=== PATIENT | female | born 1945 | race American Indian/Alaskan Native ===

== ENCOUNTER 2018-04-07 19:44 | Emergency (ER) | payer MEDICARE, OTHER ==
[2018-04-07 19:44] VITALS: PULSE 66
[2018-04-07 20:13] VITALS: RESP 18; TEMP 98.3; O2SAT 100; BMI 19.1
--- NOTE | 2018-04-07 20:28 | ED PDOC ---
Arrival/HPI - General Chief Complaint: Anxiety Time Seen by Provider: 04/07/18 19:45 Historian: Patient, Family - History of Present Illness Narrative History of Present Illness (Text): 04/07/18 20:00 72 year old female, history of anxiety attacks on medication, presents to the emergency department after episode of hyperventilating. Patient was fine all day and went to sleep, but woke up hyperventilating. Daughter at beside reports patient was anxious because her grandchildren were not there and they were suppose to visit today. Patient was hyperventilating and anxious for 30 minutes, but calmed down and symptoms resolved immediately once EMS arrived. Patient report she feels better and wants to go home. She is ambulating with a walker at baseline and is on home oxygen. Patient denies any fever, chills, chest pain, shortness of breath, abdominal pain, nausea, vomiting, diarrhea, urinary symptoms, back pain, neck pain, headache, dizziness, or any other complaints. PMD: Dr. Esqueda 04/12/18 07:06 Time/Duration: Prior to Arrival Symptom Onset: Gradual Symptom Course: Resolved Activities at Onset: Sleeping Context: Home Past Medical History - Provider Review Nursing Documentation Reviewed: Yes - Infectious Disease Hx of Infectious Diseases: None - Cardiac Hx Cardiac Disorders: Yes (ARRHYTHMIA) Hx Hypertension: Yes - Pulmonary Hx Chronic Obstructive Pulmonary Disease (COPD): Yes ([facility]) - Neurological Hx Neurological Disorder: No - HEENT Hx HEENT Disorder: No Other/Comment: WEARS GLASSES - Renal Hx Renal Disorder: No - Endocrine/Metabolic Hx Endocrine Disorders: No - Hematological/Oncological Hx Blood Disorders: No - Integumentary Hx Dermatological Disorder: No - Musculoskeletal/Rheumatological Hx Arthritis: Yes - Gastrointestinal Hx Gastrointestinal Disorders: Yes Other/Comment: HIATAL HERNIA - Genitourinary/Gynecological Hx Genitourinary Disorders: No - Psychiatric Hx Anxiety: Yes Hx Substance Use: No - Surgical History Other/Comment: LEFT PARTIAL LUNG REMOVAL, TUBAL - Anesthesia Hx Anesthesia: Yes Hx Anesthesia Reactions: No Hx Malignant Hyperthermia: No - Suicidal Assessment Feels Threatened In Home Enviroment: No Family/Social History - Physician Review Nursing Documentation Reviewed: Yes Family/Social History: No Known Family HX Smoking Status: Never Smoked Hx Alcohol Use: No Hx Substance Use: No Allergies/Home Meds Allergies/Adverse Reactions: Allergies aspirin Allergy (Verified 05/30/15 10:21) milk Allergy (Verified 05/30/15 10:21) shellfish derived Allergy (Verified 05/30/15 10:21) Home Medications: Home Meds Medication Instructions Recorded Confirmed RX: Albuterol HFA [Ventolin HFA 90 1 puff INH PRN 05/15/14 05/30/15 mcg/actuation (8 g)] RX: Digoxin 0.125 tab PO DAILY 05/15/14 05/30/15 RX: Fluticasone/Salmeterol 250/50 1 puff INH DAILY 05/15/14 05/30/15 [Advair Diskus 250/50] RX: Linaclotide [Linzess] 290 mcg PO DAILY 07/20/14 05/30/15 RX: Metaproterenol Sulfate 10 mg PO BID 05/15/15 05/30/15 RX: Omeprazole 40 mg PO DAILY 05/15/15 05/30/15 RX: Potassium Chloride [K-Dur 20 20 meq PO DAILY 05/15/15 05/30/15 mEq ER Tab] RX: Theophylline [Lei-24 Tab] 300 mg PO BID 05/15/15 05/30/15 RX: Valsartan 160 mg PO DAILY 05/20/15 05/30/15 Review of Systems - Physician Review All systems were reviewed & negative as marked: Yes - Review of Systems Constitutional: absent: Fevers, Other (chills) Respiratory: Other (hyperventilating). absent: SOB Cardiovascular: absent: Chest Pain Gastrointestinal: absent: Diarrhea, Nausea, Vomiting Genitourinary Female: absent: Dysuria, Frequency, Hematuria Musculoskeletal: absent: Back Pain, Neck Pain Neurological: absent: Headache, Dizziness Psychiatric: Anxiety Physical Exam Vital Signs Reviewed: Yes Vital Signs Temp Pulse Resp BP Pulse Ox 04/07/18 19:58 98.3 F 72 18 153/71 H 100 Temperature: Afebrile Blood Pressure: Hypertensive Pulse: Regular Respiratory Rate: Normal Appearance: Positive for: Well-Appearing, Non-Toxic, Comfortable Pain Distress: None Mental Status: Positive for: Alert and Oriented X 3 - Systems Exam Head: Present: Atraumatic, Normocephalic Pupils: Present: PERRL Extroacular Muscles: Present: EOMI Conjunctiva: Present: Normal Mouth: Present: Moist Mucous Membranes Neck: Present: Normal Range of Motion Respiratory/Chest: Present: Clear to Auscultation, Good Air Exchange. No: Respiratory Distress, Accessory Muscle Use Cardiovascular: Present: Regular Rate and Rhythm, Normal S1, S2. No: Murmurs Abdomen: No: Tenderness, Distention, Peritoneal Signs Back: Present: Normal Inspection Upper Extremity: Present: Normal Inspection. No: Cyanosis, Edema Lower Extremity: Present: Normal Inspection. No: Edema Neurological: Present: GCS=15, CN II-XII Intact, Speech Normal Skin: Present: Warm, Dry, Normal Color. No: Rashes Psychiatric: Present: Alert, Oriented x 3, Normal Insight, Normal Concentration Medical Decision Making ED Course and Treatment: 04/07/18 20:00 Impression: 72 year old female presents s/p episode of hyperventilating secondary to report of anxiety which has resolved. Plan: -- EKG -- Reassess and disposition Prior Visits: Notes and results from previous visits were reviewed. Progress Notes: 04/07/18 20:36 Patient reports she feels better and would like to go home. Patient is in no acute distress. I have discussed the plan with the patient, who expresses un derstanding. Patient given the opportunity to ask question, all questions were answered and there is agreement with the plan to discharge the patient home. Patient is stable for discharge. Patient was instructed to follow up with physician/clinic in 1-2 days or return if symptoms persist/worsen or new concerning symptoms arise. 04/07/18 20:45 EKG shows NSR at 69bpm with q waves but no acute st changes. no complaint of chest pain 04/12/18 07:06 - EKG Interpretation Interpreted by ED Physician: Yes Type: 12 lead EKG - Scribe Statement The provider has reviewed the documentation as recorded by the Chaimibchlesea Flannery Provider Scribe Attestation: All medical record entries made by the Nazario were at my direction and personally dictated by me. I have reviewed the chart and agree that the record accurately reflects my personal performance of the history, physical exam, medical decision making, and the department course for this patient. I have also personally directed, reviewed, and agree with the discharge instructions and disposition. Disposition/Present on Arrival - Present on Arrival Any Indicators Present on Arrival: No History of DVT/PE: No History of Uncontrolled Diabetes: No Urinary Catheter: No History of Decub. Ulcer: No History Surgical Site Infection Following: None - Disposition Have Diagnosis and Disposition been Completed?: Yes Diagnosis: Anxiety attack Disposition: HOME/ ROUTINE Disposition Time: 20:28 Condition: GOOD Discharge Instructions (ExitCare): Anxiety, Adult (DC) Additional Instructions: Follow-up with Dr. Esqueda within 2 days. Take anxiety medication as prescribed. Return to emergency department if condition worsens. Referrals: Jennifer Esqueda MD [Family Provider] - Follow up with primary Forms: [employer] ([place])
[2018-04-07 21:20] VITALS: BP 147/72; PULSE 70
--- NOTE | 2018-04-08 17:32 | CARD ---
APPROVED REPORT Date of service: 04/07/2018 EKG Measurement Heart [id number] <Conclusion> Normal sinus rhythm Septal infarct, age undetermined Abnormal ECG
== END 2018-04-07 21:18 | disposition home or self-care (01) ==
LOC: ED 19:44
DX: F41.0 Panic disorder [episodic paroxysmal anxiety] (principal); I10 Essential (primary) hypertension; Z99.81 Dependence on supplemental oxygen